=== PATIENT | female | born 1980 | race Caucasian/White ===

== ENCOUNTER 2017-01-10 06:58 | Day surgery (SDC) | payer OTHER ==
[2017-01-10] MEDS ORDERED: Lidocaine 2% 5 ML SDV ONE (07:13)
[2017-01-10] MEDS ORDERED: Propofol 200 MG/20 ML SDV ONE (07:13)
[2017-01-10] MEDS ORDERED: Midazolam 1 MG/ML 2 ML SDV ONE (07:13)
[2017-01-10] MEDS ORDERED: fentaNYL 100 MCG/2 ML SDV ONE (07:13)
[2017-01-10] MEDS ORDERED: Bupivacaine 25%/EPINEPHrine/PF 30 ML ONE (07:19)
--- NOTE | 2017-01-10 07:51 | PCM.PREANE ---
Preanesthetic Assessment - Anesthesia/Transfusion/Family Hx Anesthesia History: Prior Anesthesia Without Reaction Other Type of Anesthesia Reaction Comment: pt states her mother had problems with N/V post anesthesia Family History of Anesthesia Reaction: No Transfusion History: No Prior Transfusion(s) Intubation History: Unknown - Review of Systems General: No Symptoms Pulmonary: No Symptoms Cardiovascular: No Symptoms Gastrointestinal: No Symptoms Neurological: No Symptoms Other: Reports: None - Physical Assessment NPO Status Date: 01/09/17 NPO Status Time: 23:00 Height: 1.65 m Weight: 111.584 kg ASA Class: 2 Mental Status: Alert & Oriented x3 Airway Class: Mallampati = 2 Dentition: Reports: Normal Dentition Thyro-Mental Finger Breadths: 3 Mouth Opening Finger Breadths: 3 ROM/Head Extension: Full Lungs: Clear to Auscultation, Normal Respiratory Effort Cardiovascular: Regular Rate, Regular Rhythm - Lab Values: Laboratory Last Values Urine HCG, Qual NEGATIVE (NEGATIVE) 01/10/17 07:01 - Allergies Allergies/Adverse Reactions: Allergies Allergy/AdvReac Type Severity Reaction Status Date / Time No Known Allergies Allergy Verified 06/18/14 20:48 - Blood Blood Available: No - Anesthesia Plan Pre-Op Medication Ordered: None - Acknowledgements Anesthesia Type Planned: MAC Pt an Appropriate Candidate for the Planned Anesthesia: Yes Alternatives and Risks of Anesthesia Discussed w Pt/Guardian: Yes Pt/Guardian Understands and Agrees with Anesthesia Plan: Yes PreAnesthesia Questionnaire HEENT History: Reports: Allergic Rhinitis, Other (See Below) Other HEENT History: wears glasses/contacts [employer] History: Reports: Psychiatric History: Reports: Anxiety, Depression Endocrine/Metabolic History: Reports: Obesity/BMI 30+ - Past Surgical History Head Surgeries/Procedures: Reports: None HEENT Surgical History: Reports: Adenoidectomy, Tonsillectomy - SUBSTANCE USE Smoking Status *Q: Never Smoker Days Per Week of Alcohol Use: 0 Recreational Drug Use History: No - HOME MEDS Home Medications: Home Meds FLUoxetine HCl [Prozac] 20 mg PO QAM 06/18/14 [History] Loratadine [Claritin] 1 tab PO BEDTIME 01/08/17 [History] - CURRENT (IN HOUSE) MEDS Current Meds: Current Medications Hydrocodone Bitart/Acetaminophen (Chase 325-5 Mg) 1 tab PO Q4H PRN PRN Reason: Pain Bupivacaine HCl/Epinephrine Bitart (Marcaine 0.25%/Epinephrine 1:200,000) 10 ml INJECT ONETIME ONE Stop: 01/10/17 08:01 Cefazolin Sodium/Dextrose 2 gm (/ Premix) 50 mls @ 100 mls/hr IV ONETIME ONE Stop: 01/10/17 08:29 Lactated Ringer's (Ringers, Lactated) 1,000 mls @ 125 mls/hr IV ASDIRECTED QUOC Last Admin: 01/10/17 07:32 Dose: 125 mls/hr Discontinued Medications Fentanyl (Sublimaze) Confirm Administered Dose 100 mcg .ROUTE .STK-MED ONE Stop: 01/10/17 07:14 Bupivacaine HCl/Epinephrine Bitart (Sensorc Mpf 0.25%-Epi [id number]) Confirm Administered Dose 30 mls @ as directed .ROUTE .STK-MED ONE Stop: 01/10/17 07:20 Lidocaine (Xylocaine-Mpf 2%) Confirm Administered Dose 5 ml .ROUTE .STK-MED ONE Stop: 01/10/17 07:14 Midazolam HCl (Versed 1 Mg/Ml) Confirm Administered Dose 2 mg .ROUTE .STK-MED ONE Stop: 01/10/17 07:14 Propofol (Diprivan 20 Ml) Confirm Administered Dose 200 mg .ROUTE .STK-MED ONE Stop: 01/10/17 07:14
[2017-01-10] MEDS ORDERED: Lactated Ringers 1,000 ML IV SCH (08:00)
[2017-01-10] MEDS ORDERED: ceFAZolin 2 GM in Premix Bag 1 BAG IV ONE (08:00)
[2017-01-10] MEDS ORDERED: Bupivacaine 0.25%/EPINEPHrine 1:200,000 10 ML SDV INJECT ONE (08:00)
[2017-01-10] MEDS ORDERED: Acetaminophen/HYDROcodone 325-5 MG Tab PO PRN (08:00)
[2017-01-10] MEDS ORDERED: Sodium Chloride 0.9% 20 ML ONE (08:39)
[2017-01-10] MEDS ORDERED: ceFAZolin 1 GM Vial ONE (08:39)
--- NOTE | 2017-01-10 09:30 | PCM48HPAN ---
Post Anesthesia Note - EVALUATION WITHIN 48HRS OF ANESTHETIC Vital Signs in Normal Range: Yes Patient Participated in Evaluation: Yes Respiratory Function Stable: Yes Airway Patent: Yes Cardiovascular Function Stable: Yes Hydration Status Stable: Yes Pain Control Satisfactory: Yes Nausea and Vomiting Control Satisfactory: Yes Mental Status Recovered: Yes - COMMENTS/OBSERVATIONS Free Text/Narrative:: no anesthesia problems, patient skipped recovery room phase of postoperative care
[2017-01-10 10:48] VITALS: BP 114/74
--- NOTE | 2017-01-10 13:38 | PCM.OPNOTE ---
- General Post-Op/Procedure Note Date of Surgery/Procedure: 01/10/17 Operative Procedure(s): right carpal tunnel release Pre Op Diagnosis: right carpal tunnel Post-Op Diagnosis: Same Anesthesia Technique: Local, MAC Primary Surgeon: Mahogany Erwin Assembler Camper: Sarah England Complications: None Condition: Good Free Text/Narrative:: Intake & Output 01/09/17 01/10/17 01/10/17 23:59 07:59 15:59 Intake Total 60 Balance 60
--- NOTE | 2017-01-10 20:06 | OR ---
SURGEON: TARAN CM MD HAIR OR BEAUTY SALON MANAGER:JEANNE ARGUETA DATE OF PROCEDURE: 01/10/2017 PREOPERATIVE DIAGNOSIS: Right carpal tunnel syndrome. POSTOPERATIVE DIAGNOSIS: Right carpal tunnel syndrome. PROCEDURE: Right carpal tunnel release. INDICATIONS: Ms. Bains is a 36-year-old female with right carpal tunnel syndrome. Risks and benefits of carpal tunnel release were discussed with her and she was in agreement to proceed. Risks were including, but not limited to bleeding, infection, damage to underlying or overlying structures, possible need for future interventions and possible scarring. PROCEDURE IN DETAIL: After informed consent was obtained and placed on the chart, the patient was brought to the operating theater in a supine position. After adequate local MAC anesthesia was obtained, the area was prepped and draped and a time-out was completed to confirm side and site. The arm was then exsanguinated and the tourniquet was inflated to 200 mmHg. Attention was then paid to dissection over the transverse carpal ligament using a 15 blade first through the skin and then through the subcutaneous tissues using direct visualization. Once the ligament was breached, dissection was carried distally and proximally using a Littler scissors under direct visualization. Once adequately released, the wound was irrigated and closed using a 5-0 nylon stitch in a horizontal mattress fashion. The wound was dressed with Xeroform fluffs and a Kerlix gauze dressing and a 2-inch Marlon wrap. All counts and needles were correct at the end of the case. FOLLOWUP INSTRUCTIONS: The patient will see us in clinic in 10 to 14 days sooner if any problems, questions, or concerns. HEGGTHE / ROXANN /[id number] KATERYNA
== END 2017-01-10 09:40 | disposition home or self-care (01) ==
LOC: MW.SDS 06:58
PROVIDERS: ATTEND Plastic Surgery
DX: G56.01 Carpal tunnel syndrome, right upper limb (principal); F41.9 Anxiety disorder, unspecified; F32.9 Major depressive disorder, single episode, unspecified; Z90.89 Acquired absence of other organs; Z79.899 Other long term (current) drug therapy
CPT/HCPCS: 64721; 81025; J0690; J2250; J3010; J7120; 01810; J2704